=== PATIENT | female | born 1955 | race Caucasian/White ===

== ENCOUNTER → 2016-11-20 | Outpatient (CLI) | payer OTHER ==
[~2016-11-20] VITALS: Ht 167.6 cm; Wt 89.8 kg
[~2016-11-20] MED LIST: LIPITOR40 MG PO; LISINOPRIL-HCT1 EACH PO; PRILOSEC 20 MG20 MG PO
--- NOTE | ~2016-11-20 | P ---
[facility] [place] [address] PROCEDURE REPORT Name: RASHAD RIBEIRO [facility] [id number] Admission: 11/20/16 Attend Phys: Bryn Beatty Discharge: Date of : 57 Report #: [id number] THIS REPORT FOR: //name// CC: Bryn Funez MD DATE OF SERVICE: 11/20/2016 PROCEDURE PERFORMED: Colonoscopy with biopsies. HISTORY OF PRESENT ILLNESS: The patient is a 61-year-old female with a history of colon polyps, here for a 5-year followup. She denies any symptoms. No family history of colon cancer. DESCRIPTION OF PROCEDURE: The risks and benefits of the procedure were explained to the patient, those risks including but not limited to bleeding, perforation and the risk of sedation. She understood these risks and gave informed consent. Sedation was given using propofol per anesthesia. Next, a digital rectal exam was initially performed, which was normal. Next, using a standard Fujinon colonoscope, the scope was placed in the patient's anus and advanced under direct vision to the cecum. The overall prep was excellent. The cecum and ileocecal valve were normal in appearance. In the proximal ascending colon, there was a 3-mm sessile polyp. This was removed with cold forceps, otherwise normal. The transverse colon was normal. A few scattered diverticula were noted in the descending and sigmoid colon. No evidence of inflammation, otherwise normal. The rectal mucosa was normal. On retroflexion, no abnormalities were noted. The scope was then withdrawn and the procedure terminated. The patient tolerated the procedure well. IMPRESSION: 1. Small colonic polyp. 2. Left sided diverticulosis. 3. Otherwise, normal colonoscopy. RECOMMENDATIONS: 1. Await biopsy results. 2. If polyp is hyperplastic, repeat in 10 years; if adenomatous polyp, repeat in 5 years. Thank you for allowing me to participate in her care. <ELECTRONICALLY SIGNED> By: Bryn Schwartz MD 11/20/16 1510 [id number] Bryn Schwartz MD /nt
--- NOTE | ~2016-11-20 | S ---
[facility] [place] [address] SURGICAL PATH RPT PROCEDURE Name: LYNETTE JANE Room #: REG [facility] M.Ying.#: [id number] Admission: 11/20/16 Date of : 57 Discharge: Report #: [id number] Path Case #: [id number] PATHOLOGY REPORT COLLECTION DATE: 11/20/2016 RECEIVED DATE: 11/20/2016 SUBMITTING PHYS: Dr. Bryn Schwartz OTHER PHYS: Dr. Jacquelyn Funez SPECIMEN(S) RECEIVED: A.Ascending colon polyp * * * * * * * * * * * * FINAL DIAGNOSIS: Polyp, at ascending colon, endoscopic biopsy: - Minute tubular adenoma. - Negative for high grade dysplasia. - Lymphoid aggregates. (IUV:mml; 11/23/2016) PATHOLOGIST: Maira Valenzuela M.D. REPORT ELECTRONICALLY SIGNED BY: Maira Valenzuela M.D. DATE/TIME: 11/23/2016 16:17 * * * * * * * * * * * * GROSS PATHOLOGY: Received in formalin labeled "Lynette Jane, polyp at ascending colon," are 2 segments of garcia soft tissue measuring 0.9 x 0.2 x 0.2 cm in aggregate dimensions and ranging from 0.2 to 0.7 cm in maximum dimension. The specimen is submitted entirely in cassette A1. (TSD; 11/20/2016) CLINICAL HISTORY: Pre-OP DX: Hx of polyps Post-OP DX: Colon polyp and diverticulosis INITIAL CPT CODE(S): A; 35805 Professional services performed by [facility] at [facility] [address], [place] [address] Technical services performed by [facility] at [address] [place] [id number]. [facility] [address] [place] [address] SURGICAL PATH RPT PROCEDURE Name: LYNETTE JANE Room #: REG SIMON Mcneil#: [id number] Admission: 11/20/16 Date of : 57 Discharge: Report #: [id number] Path Case #: [id number] [facility] [address] [address] PHONE: [phone] DIRECTOR: Yan Mauro M.D. * * * END OF REPORT * * *
== END | disposition home or self-care (01) ==
LOC: GI 08:00
DX: Z09 Encounter for follow-up examination after completed treatment for conditions other than malignant neoplasm (principal); D12.2 Benign neoplasm of ascending colon; K57.30 Diverticulosis of large intestine without perforation or abscess without bleeding; I10 Essential (primary) hypertension; E78.5 Hyperlipidemia, unspecified; K21.9 Gastro-esophageal reflux disease without esophagitis; Z90.710 Acquired absence of both cervix and uterus; Z85.820 Personal history of malignant melanoma of skin; Z98.890 Other specified postprocedural states; Z88.6 Allergy status to analgesic agent; Z79.899 Other long term (current) drug therapy
CPT/HCPCS: 62110; 62900